=== PATIENT | female | born 1980 | race Asian ===

== ENCOUNTER 2017-05-02 02:34 | Inpatient (IN) | payer SELFPAY ==
[~2017-05-02] VITALS: Ht 167 cm; Wt 68.9 kg
[2017-05-02] MEDS: OXYTOCIN 20 UNITS in LACTATED RINGERS 1,000 ML IV SCH ×3 (00:50→17:14)
[2017-05-02] MEDS ORDERED: TERBUTALINE 1 MG/ML VIAL SUBQ ONE (03:11)
[2017-05-02] MEDS ORDERED: LACTATED RINGERS 1,000 ML IV SCH (03:31)
[2017-05-02] MEDS ORDERED: CITRIC ACID/SODIUM CITRATE 30 ML UDC PO SCH (03:35)
[2017-05-02 03:56] LABS: BASOPHILS # (AUTO) 0.3 K/uL (0.00-0.22); EOSINOPHILS % (AUTO) 0.2 % (0.0-4.0); NEUTROPHILS # (AUTO) 7.4 K/uL (1.8-7.7); WHITE BLOOD COUNT (AUTO) 10.6 K/uL (4.8-10.8)
[2017-05-02 03:57] LABS: APPEARANCE,URINE CLOUDY (CLEAR); BILIRUBIN,URINE NEGATIVE (NEGATIVE); BLOOD, URINE 3+ (NEGATIVE); COLOR,URINE YELLOW (YELLOW); LEUKOCYTE ESTERASE ,URINE 1+ (NEGATIVE); NITRITE, URINE NEGATIVE (NEGATIVE); UGLUCOSE NEGATIVE (NEGATIVE)
[2017-05-02 04:00] LABS: BASOPHILS % (AUTO) 3.2 % (0.0-2.0); HEMATOCRIT 35.3 % (36-48); HEMOGLOBIN 12.1 g/dL (12.0-16.0); LYMPHOCYTES # (AUTO) 2.2 K/uL (2.5-16.5); LYMPHOCYTES % (AUTO) 21.2 % (20.5-51.1); MEAN CORPUSCULAR HEMOGLOBIN 32 pg (27-31); MEAN CORPUSCULAR HGB CONC 34 g/dL (33-37); MEAN CORPUSCULAR VOLUME 92 fL (80-94); MONOCYTES # (AUTO) 0.7 K/uL (0.8-1.0); MONOCYTES % (AUTO) 6.4 % (1.7-9.3); PLATELET COUNT (AUTO) 116 K/uL (140-450); RED BLOOD CELL COUNT(AUTO) 3.82 MIL/uL (4.20-5.40); RED CELL DISTRIBUTION WIDTH 12.6 % (11.6-13.7)
[2017-05-02] MEDS ORDERED: CITRIC ACID/SODIUM CITRATE 30 ML UDC ONE (04:18)
[2017-05-02] MEDS ORDERED: ceFAZolin 1,000 MG VIAL ONE (04:19)
[2017-05-02 04:32] LABS: RBC,URINE TOO NUMEROUS TO COUN /HPF (0-5)
[2017-05-02 04:33] LABS: URINE AMORPHOUS URATE 2+ /HPF (None Seen); WBC,URINE TOO MANY TO COUNT /HPF (0-5)
[2017-05-02] MEDS ORDERED: OXYTOCIN 10 UNITS/ML VIAL ONE (05:01)
[2017-05-02] MEDS ORDERED: TRIAMCINOLONE 40 MG/ML 5ML VIAL ONE (05:02)
[2017-05-02] MEDS ORDERED: METHYLERGONOVINE 0.2 MG/ML AMP ONE ×2 (05:02→05:32)
[2017-05-02] MEDS ORDERED: MORPHINE PRES FREE 10 MG/10 ML AMP IV ONE (05:10)
[2017-05-02] MEDS ORDERED: OXYTOCIN 10 UNITS/ML VIAL IV ONE (05:15)
[2017-05-02] MEDS ORDERED: BUPIVACAINE-MPF 0.75% 10 ML VIAL INJ ONE (05:15)
[2017-05-02] MEDS ORDERED: ONDANSETRON 4 MG/2 ML VIAL IVP ONE (05:15)
[2017-05-02] MEDS ORDERED: ONDANSETRON 4 MG/2 ML VIAL IVP PRN (05:30)
[2017-05-02] MEDS ORDERED: OXYTOCIN 20 UNITS in LACTATED RINGERS 1,000 ML IV SCH (05:30)
[2017-05-02] MEDS ORDERED: KETOROLAC 30 MG/ML VIAL IVP PRN (05:30)
[2017-05-02] MEDS ORDERED: NALOXONE 0.4 MG/ML VIAL IVP PRN ×2 (05:30)
[2017-05-02] MEDS ORDERED: diphenhydrAMINE 50 MG/ML VIAL IVP PRN (05:30)
[2017-05-02] MEDS ORDERED: diphenhydrAMINE 50 MG/ML VIAL ONE (05:37)
[2017-05-02] MEDS ORDERED: PREN-546 PO (05:53)
[2017-05-02] MEDS ORDERED: FERR325E14 PO (05:53)
[2017-05-02] MEDS ORDERED: INFLUENZA VIRUS VACCINE QUAD 0.5 ML SYR IMVAC ONE (05:55)
[2017-05-02 05:58] VITALS: BP 139/76
[2017-05-02] MEDS ORDERED: IBUPROFEN 800 MG TAB PO PRN (06:10)
[2017-05-02] MEDS ORDERED: TEMAZEPAM 15 MG CAP PO PRN (06:10)
[2017-05-02] MEDS ORDERED: MEASLES, MUMPS, AND RUBELLA 1 VIAL SQVAC PRN (06:10)
[2017-05-02] MEDS ORDERED: TRIMETHOBENZAMIDE 200 MG/2 ML SYR IM PRN (06:10)
[2017-05-02] MEDS ORDERED: METHYLERGONOVINE 0.2 MG/ML AMP IM PRN (06:10)
[2017-05-02] MEDS ORDERED: oxyCODONE/APAP 5/325 MG 1 TAB TAB PO PRN (06:10)
[2017-05-02] MEDS ORDERED: SIMETHICONE 80 MG TAB.CHEW PO PRN (06:10)
[2017-05-02] MEDS: OXYTOCIN 20 UNITS/LR PREMIX 1,000 ML IV ONE ×2 (06:27→06:45)
[2017-05-02] MEDS ORDERED: OXYTOCIN 20 UNITS/LR PREMIX 1,000 ML IV ONE (06:33)
--- NOTE | 2017-05-02 09:10 | NUR ---
PATIENT HAS BEEN SCREENED AND CATEGORIZED LOW NUTRITION RISK. PATIENT WILL BE SEEN WITHIN 7 DAYS OF ADMISSION. 05/08/[address]
[2017-05-02] MEDS ORDERED: DOCUSATE SOD/SENNA 50/8.6 MG 1 TAB PO SCH (21:00)
[2017-05-03] MEDS ORDERED: OXYTOCIN 20 UNITS/LR PREMIX 1,000 ML IV ONE (00:41)
[2017-05-03 08:37] LABS: BASOPHILS # (AUTO) 0.1 K/uL (0.00-0.22); BASOPHILS % (AUTO) 0.8 % (0.0-2.0); EOSINOPHILS # (AUTO) 0.1 K/uL (0-0.4); EOSINOPHILS % (AUTO) 0.6 % (0.0-4.0); HEMATOCRIT 28.5 % (36-48); HEMOGLOBIN 9.8 g/dL (12.0-16.0); LYMPHOCYTES # (AUTO) 1.2 K/uL (2.5-16.5); MEAN CORPUSCULAR HEMOGLOBIN 32 pg (27-31); MEAN CORPUSCULAR HGB CONC 35 g/dL (33-37); MEAN CORPUSCULAR VOLUME 92 fL (80-94); MONOCYTES # (AUTO) 0.6 K/uL (0.8-1.0); MONOCYTES % (AUTO) 5.2 % (1.7-9.3); NEUTROPHILS # (AUTO) 10.3 K/uL (1.8-7.7); NEUTROPHILS % (AUTO) 83.4 % (42.2-75.2); PLATELET COUNT (AUTO) 120 K/uL (140-450); RED BLOOD CELL COUNT(AUTO) 3.09 MIL/uL (4.20-5.40); RED CELL DISTRIBUTION WIDTH 12.7 % (11.6-13.7); WHITE BLOOD COUNT (AUTO) 12.3 K/uL (4.8-10.8)
[2017-05-03] MEDS: HYDROcodone/APAP 5/325 MG 1 TAB TAB PO PRN (10:09)
[2017-05-03 12:30] LABS: RAPID PLASMA REAGIN NON-REACTIVE (Non Reactiv)
[2017-05-04] MEDS ORDERED: INFLUENZA VIRUS VACCINE QUAD 0.5 ML SYR IMVAC SCH (13:00)
[2017-05-04] MEDS: HYDROcodone/APAP 5/325 MG 1 TAB TAB PO PRN (13:18)
[2017-05-05] MEDS ORDERED: IBUP-1842 PO (11:53)
== END 2017-05-05 21:00 | disposition home or self-care (01) | DRG 766 ==
LOC: MLD 02:34 → MFCC 07:55
PROVIDERS: ADMIT Obstetrics & Gynecology; ATTEND Obstetrics & Gynecology
PROC: 3E0234Z Introduction of Serum, Toxoid and Vaccine into Muscle, Percutaneous Approach (ICD-10-PCS; 2016-05-04)
PROC: 10D00Z1 Extraction of Products of Conception, Low, Open Approach (ICD-10-PCS; principal; 2017-05-02 05:00)
DX: O69.1XX0 Labor and delivery complicated by cord around neck, with compression, not applicable or unspecified (principal); O34.211 Maternal care for low transverse scar from previous cesarean delivery; Z3A.40 40 weeks gestation of pregnancy; Z23 Encounter for immunization; Z37.0 Single live birth
CPT/HCPCS: 36415; 51702; 81001; 85025; 86592; 86886; 86900; 86901; 87086; 90658; J0690; J1200; J1885; J2210; J2270; J2405; J2590; J3105; J3301; J3490; J7060; J7120